=== PATIENT | female | born 1950 | race Caucasian/White ===

== ENCOUNTER 2021-07-15 08:52 | Day surgery (SDC) | payer OTHER ==
[~2021-07-15] VITALS: Ht 157.5 cm; Wt 57.0 kg
[~2021-07-15 08:52] MED LIST: ASPI81EC PO; Aspir 8181 MG; CALCIUM 250-D1 EACH; ESTMEDA PO; ESTRADIOL1 MG; EUTHYROX50 MCG; LISHYD1012 PO; LISI10; Lisinopril-Hct1 EAC4; MEDR2.5; METO50 PO; NITRSPRAY SL; OLME20; OMEP10ER PO; OMEP20ER; OMEP20ER PO; POTCHL20ER; Prinivil10 MG; QUIN10; ROSU10TA; ROSU5 PO; TRIA50; VISBIOME 112.51 EACH; VYTORIN; WATER PILL
== END 2021-07-15 11:12 | disposition home or self-care (01) ==
LOC: ORSCSDS 08:52
PROVIDERS: Internal Medicine Gastroenterology
PROC: 0DB48ZX Excision of Esophagogastric Junction, Via Natural or Artificial Opening Endoscopic, Diagnostic (ICD-10-PCS; principal; 2021-07-15 10:00)
PROC: 0DBN8ZX Excision of Sigmoid Colon, Via Natural or Artificial Opening Endoscopic, Diagnostic (ICD-10-PCS; principal; 2021-07-15 10:00)
PROC: 0DB78ZX Excision of Stomach, Pylorus, Via Natural or Artificial Opening Endoscopic, Diagnostic (ICD-10-PCS; principal; 2021-07-15 10:00)
DX: Z12.11 Encounter for screening for malignant neoplasm of colon (principal); K21.9 Gastro-esophageal reflux disease without esophagitis; K57.30 Diverticulosis of large intestine without perforation or abscess without bleeding; D12.5 Benign neoplasm of sigmoid colon; I10 Essential (primary) hypertension; E78.00 Pure hypercholesterolemia, unspecified; Z79.899 Other long term (current) drug therapy
CPT/HCPCS: 87081; 88305; J2704; J7120

== ENCOUNTER → 2023-06-08 | Outpatient (CLI) | payer OTHER | LOC: LAB SHORT 14:11 → LAB 14:11 | DX: N39.0 Urinary tract infection, site not specified (principal) | CPT/HCPCS: 87077; 87086; 87186 ==